=== PATIENT | male | born 1990 | race Caucasian/White ===

== ENCOUNTER 2020-08-23 16:42 | Emergency (ER) | payer MEDICAID, SELFPAY ==
[2020-08-23 16:57] VITALS: BP 121/75; PULSE 90; RESP 20; TEMP 37.4; O2SAT 99
== END 2020-08-23 20:53 | disposition left against medical advice (07) ==
PROVIDERS: Emergency Provider Emergency Medicine; PCP Physician Assistant Medical
DX: M79.603 Pain in arm, unspecified (principal)